=== PATIENT | female | born 1970 | race Hispanic/Latino ===

== ENCOUNTER → 2018-02-18 | Outpatient (CLI) | payer OTHER ==
[~2018-02-18] MED LIST: AMARYL4 MG PO; CARVEDILOL12.5 MG PO; CEPHALEXIN500 MG PO; FENOFIBRATE145 MG PO; HYDROCHLOROTH12.5 MG PO; LANTUS 3ML100 UNITS/ SQ; LASIX40 MG PO; LISINOPRIL10 MG PO; MECLIZINE HCL12.5 MG PO; MELOXICAM7.5 MG PO; METFORMIN HCL500 MG PO; NOVOLOG100 UNITS1; PRINIVIL20 MG PO; TENORMIN50 MG PO; ZOCOR40 MG PO
--- NOTE | 2018-03-03 08:48 | Diagnostic Imaging Report ---
#[id number] - MGSCRBIL #BILATERAL DIGITAL SCREENING MAMMOGRAM WITH CAD: 02/18/2018 CLINICAL: Routine screening. Comparison is made to exams dated: 01/30/2015 mammogram, 06/21/2013 mammogram and 01/25/2017 mammogram - [facility]. Current study contains 4 films. There are scattered fibroglandular elements in both breasts. Current study was also evaluated with a Computer Aided Detection (CAD) system. There are benign vascular calcifications in both breasts. A pacemaker on tlhe left chest wall is new compared to the prior study. No significant masses, calcifications, or other findings are seen in either breast. There has been no significant interval change. IMPRESSION: BENIGN There is no mammographic evidence of malignancy. A 1 year screening mammogram is recommended. The patient will be notified by letter of the results. Alexis Fuentes Jr., D.O. cw/:02/27/2018 08:58:19 [employer] Teacher: Vonda VELA(R)(M), [facility] letter sent: Compared to Prior B9 Mammogram BI-RADS: 2 Benign
== END ==
LOC: MAMMO 15:33
PROVIDERS: ATTEND Internal Medicine
DX: Z12.31 Encounter for screening mammogram for malignant neoplasm of breast (principal)
CPT/HCPCS: 77067